=== PATIENT | female | born 1975 | race Caucasian/White ===

== ENCOUNTER 2020-04-04 19:40 | Emergency (ER) | payer SELFPAY ==
[~2020-04-04] VITALS: Ht 152.4 cm; Wt 90.0 kg
[2020-04-04] MEDS ORDERED: diazePAM 5 MG TABLET PO ONE (20:45)
[2020-04-04] MEDS ORDERED: GABAPENTIN 300 MG CAPSULE. PO ONE (20:45)
[2020-04-04] MEDS ORDERED: KETOROLAC 60 MG/2 ML VIAL. IM ONE (20:45)
[2020-04-04] MEDS ORDERED: METH-38 PO (21:15)
--- NOTE | 2020-04-04 21:15 | ED.ADGEN ---
Past Medical History Past Medical History: Diabetes-Type II, High Cholesterol Past Surgical History: No Surgical History Smoking Status: Never Smoker Alcohol Use: None General Adult EDM: Chief Complaint: OTHER COMPLAINTS HPI: HPI: Patient is a 44-year-old female past medical history of diabetes who presents to the emergency room complaining of pain through her left arm with a tingling feeling in her forearm. This started last night while she was watching TV and has been constant since that time. She denies any trauma. She does not have any neck pain. She does not have any weakness or difficulty using her arm. She denies any chest pain, shortness of breath, URI symptoms, fever, chills, sweats. She does not have any numbness in her leg. She does not have any facial changes. Review of Systems: Review of Systems: Complete ROS is negative unless otherwise documented in HPI Current Medications: Current Medications Medications (Trade) Dose Ordered Sig/Carlos Start Time Stop Time Status Last Admin Dose Admin Diazepam (Valium) 5 mg 1X ONCE 04/04/20 20:45 04/04/20 20:46 DC 04/04/20 20:47 5 MG Gabapentin (Neurontin) 300 mg 1X ONCE 04/04/20 20:45 04/04/20 20:46 DC 04/04/20 20:47 300 MG Ketorolac Tromethamine (Toradol Im) 60 mg 1X ONCE 04/04/20 20:45 04/04/20 20:46 DC 04/04/20 20:47 60 MG Allergies: Allergies: Allergies Coded Allergies Type Severity Reaction Last Updated Verified No Known Drug Allergies 04/04/20 No Physical Exam: PE: General: Awake, alert, NAD. Well Nourished, well hydrated. Cooperative HEENT: Atraumatic, EOMI, PERRL, airway patent, moist oral mucosa Neck: Supple, trachea midline Respiratory: CTA bilaterally, normal effort, no wheezing/crackles CV: RRR, no murmur, cap refill <2 GI: Soft, nondistended, nontender, no masses MSK: No obvious deformities Skin: Warm, dry, intact Neuro: A&O x3, speech NL, 5/5 strength in BUE/BLE distally and proximally, CN 2- 12 intact, cerebellar testing normal, intact sensation in bilateral lower extremities, intact sensation in right upper extremity, mild difference in left upper extremity from right upper extremity but intact sharp and soft sensation Psych: Normal affect, normal mood, not suicidal or homicidal Current Patient Data: Labs: Laboratory Tests Test 04/04/20 21:00 POC Urine HCG, Qualitative Hcg negative (Negative) Vital Signs: Vital Signs Date Time Temp Pulse Resp B/P (MAP) Pulse Ox O2 Delivery O2 Flow Rate FiO2 04/04/20 23:04 69 18 138/59 (85) 99 Room Air 04/04/20 20:00 97.8 97.8 EKG: EKG: [] Heart Score: Risk Factors: Risk Factors: DM, Current or recent (<one month) smoker, HTN, HLP, family history of CAD, obesity. Risk Scores: Score 0 - 3: 2.5% MACE over next 6 weeks - Discharge Home Score 4 - 6: 20.3% MACE over next 6 weeks - Admit for Clinical Observation Score 7 - 10: 72.7% MACE over next 6 weeks - Early Invasive Strategies Radiology/Procedures: Radiology/Procedures: [] Course & Med Decision Making: Course & Med Decision Making Pertinent Labs and Imaging studies reviewed. (See chart for details) Patient is a 44-year-old female presents to the emergency room complaining of pain that starts behind her shoulder and radiates into her arm with some numbness and tingling. EKG is negative. Patient does not have any chest pain and this does not sound related to cardiac pathology. Patient symptoms are consistent with cervical radiculopathy. Patient will be treated symptomatically with muscle relaxers and steroids. Patient's test results and vitals while in the ED were fully reviewed and discussed with the patient. Patient is stable and at this time does not need admission to the hospital. We have discussed strict return precautions and the importance of following up with their Primary Care Physician. Patient stated understanding and was given an opportunity to ask any questions. Patient is in agreement with plan. Tom Disclaimer: Tom Disclaimer: This electronic medical record was generated, in whole or in part, using a voice recognition dictation system. Departure Departure Impression: Primary Impression: Cervical radiculopathy Disposition: 01 DC HOME SELF CARE/HOMELESS Condition: STABLE Referrals: NON,STAFF (PCP) Patient Instructions: Cervical Radiculopathy Scripts Methocarbamol (ROBAXIN-750) 750 Mg Tablet 1 TAB PO TID PRN for MUSCLE SPASMS for 10 Days, #30 TAB 0 Refills Prov: AMINATA SANTACRUZ MD 04/04/20 AMINATA SANTACRUZ MD Apr 04, 2020 21:15
[2020-04-04 23:04] VITALS: BP 138/59
== END 2020-04-04 23:23 | disposition home or self-care (01) ==
LOC: ER 21:06
DX: M54.12 Radiculopathy, cervical region (principal); M79.602 Pain in left arm; R20.2 Paresthesia of skin; E11.9 Type 2 diabetes mellitus without complications; E78.00 Pure hypercholesterolemia, unspecified
CPT/HCPCS: 81025; 96372; 99285; J1885; 93005